=== PATIENT | male | born 1960 | race African-American/Black ===

== ENCOUNTER → 2020-09-28 08:17 | Outpatient (CLI) | payer BC ==
--- NOTE | 2020-09-30 11:32 | EC ---
PATIENT:VERA GRANADOS DATE OF SERVICE: 09/28/20 SEX: M MEDICAL RECORD: [id number] DATE OF : 58 [facility] AGE OF PATIENT: 60 ADMISSION DATE: 09/28/20 REFERRING PHYSICIAN: INTERPRETING PHYSICIAN: СВЕТЛАНА JOSE MD ECHOCARDIOGRAM REPORT ECHO CHARGES 4 ECHO COMPLETE Date: 09/28/20 CLINICAL DIAGNOSIS: ANGINA/HEART MURMUR ECHOCARDIOGRAPHIC MEASUREMENTS (adult normal given) AC root (d.<3.7cm) 3.8 cm LV Septum d (<1.2 cm> 1.0 cm Valve Excursion 2.2 cm LV Septum (systole) 1.1 cm Left Atria (s.<4.0cm> 4.5 cm LVPW d(<1.2cm) 1.4 cm RV (d.<2.3cm) 3.9 cm LVPW (sytole) 1.6 cm LV diastole(<5.6CM) 5.8 cm MV E-F(>70mm/sec) cm LV systole 4.0 cm LVOT Diameter 2.1 cm MV exc.(>10mm) 2.4 cm Est.ejection fraction (50-75%) % DOPPLER: LVIT cm/sec A 91.0 cm/sec E 61.0 cm/sec LA cm/sec RVSP 28 mmHg LVOT 90 cm/sec AOP1/2T m/s Asc. Ao 113 cm/sec RVOT 60 cm/sec RA cm/sec PA 91 cm/sec AV Gradient Peak 5.14 mmHg AV Mean 2.24 mmHg AV Area 2.1 cm MV Gradient Peak 5.51 mmHg MV Mean 1.12 mmHg MV Area cm COMMENTS: Reservations Agent: 2 CHECO FERNANDEZ Host And Hostess: 3 Dr. Lopez TAPE# PACS Pericardial Effusion N DATE OF SERVICE: Adequate 2D, color-flow imaging, spectral Doppler, and M-Mode. No LVH. LV internal dimensions are normal. Wall motion is normal. EF is greater than or equal to 55%. Aortic valve is tricuspid. No evidence of stenosis by Doppler interrogation. Left atrium is mildly dilated at 4.5 cm. Mitral valve does show prolapse of the posterior leaflet with only mild MR. Right side is grossly normal. Trace TR. ECHOCARDIOGRAM REPORT [id number] VERA GRANADOS TRANSINT:[id number] Voice Confirmation ID: [id number] DOCUMENT ID: [id number] СВЕТЛАНА JOSE MD at 1132 CC: [id number] DICTATION DATE: 09/29/20 1339 LVN: 09/29/202126 DEP CLI 09/28/20 [place] [id number] [place] [id number]
== END | disposition home or self-care (01) ==
LOC: D.HCCARDIO 08:17 → D.HCCECHO 09:00
PROVIDERS: ATTEND Internal Medicine Cardiovascular Disease
DX: I20.9 Angina pectoris, unspecified (principal)

== ENCOUNTER 2020-10-14 07:14 | Day surgery (SDC) | payer BC ==
[~2020-10-14] VITALS: Ht 172.7 cm; Wt 112.4 kg
--- NOTE | ~2020-10-14 | OP ---
PATIENT NAME: VERA GRANADOS MEDICAL RECORD: [id number] :58 LOCATION:D.CAT ADMISSION DATE: SURGEON: СВЕТЛАНА JOSE MD DATE OF OPERATION: 10/14/2020 PROCEDURE: Left heart catheterization, selective coronary angiography, right radial approach. CATHETERS: Radial sheath, [place] catheter. The procedure was well tolerated. The patient was returned to the south. Sheath removed. TR band was placed. FINDINGS: Left ventriculography in 30-degree GRIFFITH view, normal wall motion and normal systolic function. CORONARY ANATOMY: LEFT MAIN: Left main is free of disease. LAD: Free of disease as is the diagonal system. CIRCUMFLEX: Free of disease as is the marginal system. RIGHT CORONARY ARTERY: Dominant right artery, gives rise to PDA, free of disease. IMPRESSION: Normal left ventricular systolic function. Normal coronary anatomy. TRANSINT:[id number] Voice Confirmation ID: [id number] DOCUMENT ID: [id number] СВЕТЛАНА JOSE MD CC: [id number] DICTATION DATE: 10/14/20 1056 CHIEF PROJECTIONIST: 10/14/20 1442 [facility] 10/14/20 [facility] [address] [place] [address]
--- NOTE | ~2020-10-14 | HEMODYNAMI ---
PATIENT:VERA GRANADOS MEDICAL RECORD: [id number] : 58 LOCATION:[facility] ADMISSION DATE: 10/14/20 Generatedon:110:51 Patient name: VERA GRANADOS Patient #: [id number] SSN: DO B: 1960 Date of study: 10/14/2020 Page: Of Hemodynamic Procedure Report Patient Data Patient Demographics Procedure consent was obtained First Name: VERA Gender: Male Last Name: DARWIN : 1960 Patient #: [id number] Age: 60 year(s) Race: Black Additional ID: [id number] Contact details Address: [address] State: [place] City: [place] Zip code: [address] Past Medical History Allergies: No known allergies Admission Admission Data Admission Date: 10/14/2020 Admission Time: 7:14 Lab Results Lab Result Date: 10/14/2020 Lab Result Time: 0:00 Biochemistry Name Units Result Min Max BUN mg/dl 19 --(----)*- 7 18 Creatinine mg/dl 1.2 --(---*)-- 0.6 1.3 eGFR ml/min 64.56815 *-(----)-- 90 120 NONAFRICAN CBC Name Units Result Min Max Hematocrit % 40.7 -*(----)-- 42 54 Hemoglobin g/dl 13.5 --(*---)-- 13.5 17.5 Procedure Procedure Types Cath Procedure Diagnostic Procedure C [facility] w/Coronaries Sedation Charges Moderate Sedation 10-24 minutes Procedure Description Procedure Date Procedure Date: 10/14/2020 Procedure Start Time: 10:33 Procedure End Time: 10:49 Procedure Staff Name Function Bentley Ricardo MD Performing Physician Senia Neal RT Monitor Maria Eugenia Hernandez RT Scrub Sergio Bruce RN Nurse Procedure Data Cath Procedure Fluoroscopy Diagnostic fluoroscopy Total fluoroscopy Time: 4.5 time: 4.5 min min Diagnostic fluoroscopy Total fluoroscopy dose: 838 dose: 838 mGy mGy Contrast Material Contrast Material Type Amount (ml) Isovue 300 53 Entry Location Entry Primary Successful Side Size Upsize Upsize Entry Closure Hassan ccessful Closure Location (Fr) 1 (Fr) 2 (Fr) Remarks Device Remarks Radial Right 6 Fr Mechanical artery Short Compression Estimated blood loss: 5 ml Diagnostic catheters Device Type Used For End Catheter Placement DIAGNOSTIC [place] 110cm 5 Procedure Fr catheter ([id number]) DIAGNOSTIC JL 3.5 5Fr Procedure catheter ([id number]) DIAGNOSTIC AR1 MOD 5Fr Procedure catheter ([id number]) Procedure Complications No complications Procedure Medications Medication Administration Route Dosage 0.9% NaCl I.V. 100 ml/hr Oxygen etCO2 Nasal cannula 2 l/min Heparin Flush Bag added to field 2 bags (1000units/500ml NS) Lidocaine 2% added to field 20 Radial Cocktail added to field 1 syringe (Verapamil 2mg/Nitro 400mcg/Heparin 1500units) Benadryl I.V. 50 mg Versed I.V. 2 mg Fentanyl I.V. 100 mcg Radial Cocktail I.A. 1 syringe (Verapamil 2mg/Nitro 400mcg/Heparin 1500units) Versed I.V. 1 mg Versed I.V. 1 mg Hemodynamics Rest HGB: 13.5 (g/dl) Heart Rate: 59 (bpm) Pressure Samples Time Site Value (mmHg) Purpose Heart Use Rate(bpm) 10:37 LV 116/25,9 Snapshot 93 10:38 LV 95/10,9 Snapshot 103 10:38 LV 120/13,10 Snapshot 104 10:38 AO 138/81(107) Pullback 67 10:38 LV 121/-1,62 Pullback 67 Gradients Valve Time Site 1 Site 2 Mean SEP/DFP Peak To Heart Use (mmHg) (sec/min) Peak Rate (mmHg) (bpm) Aortic 10:38 LV AO 0 67 121/-1,62 138/81(107) Calculations Valve P-P Mean Valve Index Valve Source Name Gradient Area Flow (cm2) Aortic 0 0 Snapshots Pre Cath Intra NCS Post Cath Vital Signs Time Heart Resp SPO2 etCO2 NIBP (mmHg) Rhythm Pain Sedation Rate (ipm) (%) (mmHg) Status Level (bpm) 10:18:04 65 14 100 36.9 143/87(126) NSR 0 (11) 10(A) , No pain 10:22:16 70 16 100 29.3 145/92(123) NSR 0 (11) 10(A) , No pain 10:26:32 61 19 100 34.6 140/85(112) NSR 0 (11) 10(A) , No pain 10:30:46 59 16 100 35.3 139/83(101) NSR 0 (11) 10(A) , No pain 10:35:00 55 19 96 33.8 118/83(100) NSR 0 (11) 10(A) , No pain 10:39:08 60 19 98 37.6 129/76(103) NSR 0 (11) 10(A) , No pain 10:43:19 61 10 97 39.1 138/82(106) NSR 0 (11) 10(A) , No pain 10:48:10 65 22 97 40.6 124/81(98) NSR 0 (11) 10(A) , No pain Medications Time Medication Route Dose Verified Delivered Reason Notes Effectiveness by by 10:18:35 0.9% NaCl I.V. 100 Sergio Sergio Per ml/hr Janis Bruce physician RN RN 10:18:43 Oxygen etCO2 2 l/min Sergio Sergio for low 02 Nasal Lorigan Lorigan sats cannula RN RN 10:18:53 Heparin Flush added 2 bags Sergio Sergio used for Bag to Lorveronica Bruce procedure (1000units/500ml field RN RN NS) 10:19:03 Lidocaine 2% added 20ml Sergio Sergio for local to vial Lorigan Malaigan anesthetic field RN RN 10:19:13 Radial Cocktail added 1 Sergio Sergio used for (Verapamil to syringe Lorigan Lorigan procedure 2mg/Nitro field RN RN 400mcg/Heparin 1500units) 10:19:35 Benadryl I.V. 50 mg Sergio Sergio Per Janis Bruce physician RN RN 10:33:27 Versed I.V. 2 mg Sergio Sergio for sedation Janis Bruce RN RN 10:33:35 Fentanyl I.V. 100 mcg Sergio Sergio for sedation Janis Bruce RN RN 10:36:33 Radial Cocktail I.A. 1 Sergio Bentley for (Verapamil syringe Lorigan Haleigh vasodilation 2mg/Nitro RN 400mcg/Heparin 1500units) 10:36:41 Versed I.V. 1 mg Sergio Sergio for sedation Janis Bruce RN RN 10:41:14 Versed I.V. 1 mg Sergio Sergio for sedation Janis Bruce RN chicken buyer Log Time Note 9:57:37 Informed consent obtained and on chart 9:57:57 Procedure Status Elective Heart Cath (OP). 9:57:58 Time tracking: Regular hours (M-F 7:00 - 5:00) 9:58:01 Plan of Care:Hemodynamics will remain stable., Cardiac rhythm will remain stable., Comfort level will be maintained., Respiratory function will remain adequate., Patient/ family verbilizes understanding of procedure., Procedure tolerated without complication., Recovers from procedure without complications.. 9:58:02 Sergio Bruce RN sent for patient. Start room use. 9:58:11 H&P Date Dictated: 09/21/2020 Within 30 days and on chart., H&P Addendum completed by physician on day of procedure. (MUST COMPLETE FOR ALL OUTPATIENTS). 10:04:00 Patient allergic to No known allergies 10:07:49 Lab Result : BUN 19 mg/dl 10:07:49 Lab Result : Creatinine 1.2 mg/dl 10:07:49 Lab Result : eGFR NONAFRICAN 64.98843 ml/min 10:07:49 Lab Result : Hemoglobin 13.5 g/dl 10:07:49 Lab Result : Hematocrit 40.7 % 10:08:01 Patient received from Pre/Post Procedure Room to CCL 2 Alert and oriented. Tansferred to table in Supine position. 10:08:03 Warm blankets applied, and krystyna hugger turned on for patient comfort. 10:08:03 Correct patient and procedure confirmed by team. 10:08:03 ECG and BP/O2 sat monitors applied to patient. 10:16:58 Vital chart was started 10:17:02 Baseline sample Acquired. 10:17:13 Baseline sample Acquired. 10:17:16 Full Disclosure recording started 10:17:17 Pre-procedure instructions explained to patient. 10:17:17 Pre-op teaching completed and patient verbalized understanding. 10:17:18 Family in patients room. 10:17:20 Patient NPO since Midnight. 10:17:21 Is the patient allergic to Iodine/contrast media? No. 10:17:24 Is patient on blood thinner?No 10:17:25 Patient diabetic? No. 10:17:28 Previous problem with sedation/anesthesia? No ? 10:17:29 Snore? Yes 10:17:29 Sleep apnea? Yes 10:17:30 Deviated septum? No 10:17:31 Opens mouth fully? Yes 10:17:33 Airway obstruction? No ? 10:17:34 Sticks out tongue? Yes 10:17:36 Dentures? No ? 10:17:40 Pre procedure: right dorsailis pedis pulse 1+ Palpable, but thready & weak; easily obliterated 10:17:42 Modified Jareth's test Ulnar < 7 seconds 10:17:44 Patient pain scale 0/10 ?. 10:17:48 IV patent on arrival in left antecubital with 0.9% NaCl at O. 10:17:50 Lab results completed and on chart. 10:17:53 Right Radial & Right Groin area was prepped with chlora-prep and draped in sterile fashion 10:17:54 Alarms reviewed by R. N. 10:17:54 Sharps counted by scrub and verified by R.N. 10:17:54 Sharps counted by scrub and verified by R.N. 10:18:20 Use device set Radial Dx or PCI 10:18:21 ACIST Syringe (18439) opened to sterile field. 10:18:22 Bag Decanter (2002S) opened to sterile field. 10:18:22 ACIST Hand Control (16088) opened to sterile field. 10:18:23 ACIST Manifold (97040) opened to sterile field. 10:18:23 Tegaderm 4 x 4 (1626W) opened to sterile field. 10:18:24 MBrace Wrist Support (068087064) opened to sterile field. 10:18:25 Medline Cath Pack ([id number]) opened to sterile field. 10:18:26 EMERALD Guide Wire (165-834) opened to sterile field. 10:18:27 SHEATH 6FR RAIN (7096625) opened to sterile field. 10:18:35 0.9% NaCl 100 ml/hr I.V. was administered by Sergio Bruce RN; Per physician; Verbal order read back and verified. 10:18:43 Oxygen 2 l/min etCO2 Nasal cannula was administered by Sergio Bruce RN; for low 02 sats; Verbal order read back and verified. 10:18:53 Heparin Flush Bag (1000units/500ml NS) 2 bags added to field was administered by Sergio Bruce RN; used for procedure; Verbal order read back and verified. 10:19:03 Lidocaine 2% 20ml vial added to field was administered by Sergio Bruce RN; for local anesthetic; Verbal order read back and verified. 10:19:04 Stress Test: yes; abnormal INFERIOR 10:19:13 Radial Cocktail (Verapamil 2mg/Nitro 400mcg/Heparin 1500units) 1 syringe added to field was administered by Sergio Bruce RN; used for procedure; Verbal order read back and verified. 10:19:35 Benadryl 50 mg I.V. was administered by Sergio Bruce RN; Per physician; Verbal order read back and verified. 10:24:17 Zero performed for pressure channel P1 10:32:16 --------ALL STOP TIME OUT------ 10:32:16 Final Timeout: patient, procedure, and site verified with staff and physician. All members of the team are in agreement. 10:32:18 Right Radial & Right Groin site verified by team. 10:32:20 Fire Safety Assessment: A--An alcohol-based skin anteseptic being used preoperatively., C--Open oxygen or nitrous oxide is being used., D--An ESU, laser, or fiber-optic light is being used. 10:32:25 Physical assessment completed. ASA score P 2 - A patient with mild systemic disease as per Bentley Ricardo MD. 10:32:28 2) 60-89 Mildly reduced kidney function, and other findings (as for stage 1) point to kidney disease. 10:32:32 Maximum allowable contrast dose (3.7 X eGFR X 0.75)219 ml. 10:32:35 Sedation plan: IV Moderate Sedation Medication:Versed, Fentanyl 10:33:27 Versed 2 mg I.V. was administered by Sergio Bruce RN; for sedation; Verbal order read back and verified. 10:33:31 Procedure started. 10:33:35 Fentanyl 100 mcg I.V. was administered by Sergio Bruce RN; for sedation; Verbal order read back and verified. 10:33:48 Local anesthetic to right radial artery with Lidocaine 2% by Bentley Ricardo MD.INITIAL ACCESS ONLY 10:36:01 A 6 Fr Short sheath was inserted into the Right Radial artery 10:36:09 A DIAGNOSTIC [place] 110cm 5 Fr catheter ([id number]) was advanced over the wire and used for Procedure. 10:36:33 Radial Cocktail (Verapamil 2mg/Nitro 400mcg/Heparin 1500units) 1 syringe I.A. was administered by Bentley Ricardo MD; for vasodilation; Verbal order read back and verified. 10:36:41 Versed 1 mg I.V. was administered by Sergio Bruce RN; for sedation; Verbal order read back and verified. 10:37:34 LV gram done using GRIFFITH 10:37:36 Injector settings: Ml/sec: 5, Volume: 15, 10:38:05 LV hemodynamics recorded. 10:38:17 EF : 55 % 10:39:54 Catheter exchanged over wire. 10:41:13 A DIAGNOSTIC JL 3.5 5Fr catheter ([id number]) was advanced over the wire and used for Procedure. 10:41:14 Versed 1 mg I.V. was administered by Sergio Bruce RN; for sedation; Verbal order read back and verified. 10:42:34 LCA angiography performed. 10:42:40 Catheter exchanged over wire. 10:43:44 A DIAGNOSTIC AR1 MOD 5Fr catheter ([id number]) was advanced over the wire and used for Procedure. 10:44:42 RCA angiography performed. 10:44:50 Catheter removed. 10:44:52 ACCDominant side:Left 10:45:26 ZEPHYR REGULAR TR BAND (778382) opened to sterile field. 10:45:28 Sheath removed intact; hemostasis achieved with Mechanical Compression to the Right Radial artery. 10:45:33 Procedure ended.(Physican Out) 10:45:44 Contrast amount:Isovue 300 53ml. 10:45:50 Fluoroscopy time 04.50 minutes. 10:45:54 Flurop Dose total: 838 10:45:54 Fluoroscopy dose: 838 mGy 10:46:00 Dose Area Product 46738 mGy/cm. 10:46:01 Sharps counted by scrub and verified by R.N. 10:46:19 Post-procedure physical assessment completed. ASA score P 2 - A patient with mild systemic disease as per Bentley Ricardo MD. 10:46:25 Post procedure rhythm: sinus rhythm 10:46:28 Estimated blood loss: 5 ml 10:46:30 Post procedure instruction explained to patient.Patient verbalizes understanding. 10:46:30 Patient needs reinforcement of post procedure teaching. 10:46:45 Procedure type changed to Cath procedure, Diagnostic procedure, LHC, C w/Coronaries, Sedation Charges, Moderate Sedation 10-24 minutes 10:47:54 Procedure and supply charges have been captured, reviewed, submitted and are correct. 10:47:56 Procedure Complication : No complications 10:48:01 [facility] Findings: mild to moderate CAD (<70%) 10:48:04 Operative report dictated upon procedure completion. 10:48:04 See physician's report for complete and final results. 10:49:09 Vital chart was stopped 10:49:14 Report given to Pre/Post Procedure Room. 10:49:16 Patient transfered to Pre/Post Procedure Room with Bed. 10:49:19 Procedure ended. 10:49:19 Full Disclosure recording stopped 10:49:27 End room use (Document Last) 10:50:28 Procedure ended.(Physican Out) Device Usage Item Name Manufacture Quantity Catalog Hospital Part Current Minima l Lot# / Number Charge Number Stock Stock Serial# Code ACIST Acist 1 20857 855514 011486 684672 20 Syringe Medical (59009) Systems Inc Bag Microtek 1 2001S 212025 27366 877034 5 Decanter Medical Inc. () ACIST Hand Acist 1 18370 178545 128824 663604 5 Control Medical (77185) Systems Inc ACIST Acist 1 73468 683825 043570 049099 5 Manifold Medical (89877) Systems Inc Tegaderm 4 3M 1 1626W 739591 687564 805528 5 x 4 (1626W) MBrace Advanced 1 140-0250-00 198950 58936 836172 5 Wrist Vascular Support Dynamics ([id number]) Medline Medline 1 [id number] 309415 52304 396482 5 Cath Pack ([id number]) EMERALD Cardinal 1 632-430 432279 801273 548828 5 Guide Wire [facility] (984-450) SHEATH 6FR Cardinal 1 4279048 919456 4204606 763277 5 [facility] (6110413) DIAGNOSTIC Terumo 1 40-0885 108257 974231 414087 5 [place] 110cm 5 Fr catheter (012884) DIAGNOSTIC Cardinal 1 [id number] 083475 955433 529487 5 JL 3.5 5Fr Health catheter (120351I) DIAGNOSTIC Cardinal 1 [id number] 344354 154650 884732 15 AR1 MOD 5Fr Health catheter (768253Z) ZEPHYR Cardinal 1 749889 872046 8395120 059156 5 REGULAR TR Health BAND (134184) Signature Audit Esmond Stage Time Signature Unsigned Intra-Procedure 10/14/2020 Senia Neal 10:50:09 AM RT(R) Intra-Procedure 10/14/2020 Sergio 10:50:28 AM Janis RN Intra-Procedure 10/14/2020 Bentley Cordon 10:51:03 AM Roger DAVIS Signatures Performing Physician : Signature : Bentley Ricardo MD Date : Time : Monitor : Senia Neal Signature : RT Date : Time : Nurse : Sergio Bruce Signature : RN Date : Time : [facility] [address] [address]
[2020-10-14 08:59] VITALS: BP 152/105; Ht 172.7 cm; Wt 112.4 kg
[2020-10-14] MEDS ORDERED: MYRBETRIQ50 MG PO ×2 (09:10→09:32)
[2020-10-14] MEDS ORDERED: KLONOPIN1 MG PO (09:10)
[2020-10-14] MEDS ORDERED: TENORMIN25 MG PO (09:10)
[2020-10-14] MEDS ORDERED: BENICAR HCT 401 EAC1 PO (09:11)
[2020-10-14] MEDS ORDERED: VALTREX1000 MG PO (09:11)
[2020-10-14] MEDS ORDERED: EFFEXOR XR150 MG PO (09:13)
[2020-10-14] MEDS ORDERED: NEURONTIN 300300 MG PO (09:32)
[2020-10-14] MEDS ORDERED: NORVASC5 MG PO (09:32)
[2020-10-14] MEDS ORDERED: CRESTOR10 MG PO (09:33)
[2020-10-14 09:36] LABS: ANION GAP 12.8 mmol/L (8-16); CALCIUM 9.1 mg/dL (8.5-10.1); CARBON DIOXIDE 27.2 mmol/L (21.0-32.0); CHOL - HDL RATIO 4.9 ratio (2.3-4.9); CREATININE - SERUM 1.2 mg/dL (0.6-1.3); LDL-HDL RATIO 3.3 ratio (1.5-3.5)
[2020-10-14] MEDS ORDERED: TRAZODONE HCL100 MG PO (09:36)
[2020-10-14] MEDS ORDERED: testosterone BC (09:36)
[2020-10-14 09:43] LABS: BASOPHILS 1.6 % (0-2); EOSINOPHILS 8.6 % (0-7); HEMATOCRIT 40.7 % (42.0-54.0); HEMOGLOBIN 13.5 g/dL (13.5-17.5); IMMATURE GRANULOCYTES 0.3 % (0-5); LYMPHOCYTE ABS# 1.43 10x3/uL (1.32-3.57); LYMPHOCYTES 37.4 % (15-50); MCH 28.8 pg (26.0-34.0); MCHC 33.2 g/dL (31.0-37.0); MCV 86.8 fL (80.0-100.0); MEAN PLATELET VOLUME 11.4 fL (7.4-10.4); MONOCYTES 11.8 % (2-11); NEUTROPHIL ABS# 1.54 10x3/uL (1.78-5.38); NEUTROPHILS 40.3 % (40-80); PLATELET COUNT 202 10x3/uL (130-400); RBC 4.69 10x6/uL (4.20-6.10); RDW 14.5 % (11.5-14.5); WBC 3.8 10x3/uL (4.8-10.8)
--- NOTE | 2020-10-14 11:00 | NUR ---
ARRIVES TO ROOM 6 VIA STRETCHER FROM ANALYSIS LEAD S/P HEART ANALYSIS LEAD. SEE BOATHOUSE KEEPER. PLACED ON MONITORS ALARMS ON. IV INFUSING PER ORDERS, PLAN OF CARE GIVEN , PT AWARE OF RECOVERY TIME, DR JOSE AT BEDSIDE TO VISIT WITH SPOUSE AND REVIEW FINDINGS, PT DENIES PAIN OR NEEDS AT THIS TIME. CALL LIGHT WITHIN REACH
--- NOTE | 2020-10-14 11:15 | NUR ---
RESTING QUIETLY AROUSES EASILY TO VERBAL, DENIES PAIN OR NEEDS, DENIES BATHROOM NEEDS, VSS, CM SHOWS SB, RIGHT WRIST WITH ZBAND IN PLACE NO OOZING OR BLEEDING , RADIAL AND BRACHIAL PULSE PALPABLE, CAP REFILL WNL , MOVES ALL DIGITS, SPOUSE AT BEDSIDE. CALL LIGHT WITHIN REACH
--- NOTE | 2020-10-14 11:30 | NUR ---
EYES CLOSED AROUSES EASILY, VSS, SB, RIGHT WRIST WITH ZBAND IN PLACE C/D/I, NO OOZING OR BLEEDING NOTED, BRACHIAL AND RADIAL PULSE PALPLABLE, CAP REFILL WNL , MOVES ALL DIGITS, DENIES PAIN OR NEEDS, IV INFUSING PER ORDERS, CALL LIGHT WITHIN REACH, PO FLUIDS OFFERED PT DECLINED
--- NOTE | 2020-10-14 11:45 | NUR ---
RIGHT WRIST WITH ZBAND IN PLACE, 2CC AIR RELEASED FROM BAND, NO OOZING OR BLEEDING, BRACHIAL AND RADIAL PULSE PALPABLE, CAP REFILL WNL, MOVES ALL DIGITS, DENIES PAIN OR NEEDS, CALL LIGHT WITHIN REACH
--- NOTE | 2020-10-14 12:15 | NUR ---
RESTING QUIETLY, VSS, SB, RIGHT WRIST WITH ZBAND IN PLACE, 4CC AIR RELEASED TOTAL OUT 6CC, NO OOZING OR BLEEDING NOTED, PT VOIDS 300 CC CLEAR YELLOW URINE IN URINAL, PT DENIES PAIN OR NEEDS AT PRESENT.
--- NOTE | 2020-10-14 12:45 | NUR ---
RESTING QUIETLY DENIES PAIN OR NEEDS, RIGHT WRIST STABLE NO OOZING OR BLEEDING NOTED, RADIAL PULSE PALPABLE, CAP REFILL WNL, MOVES ALL DIGITS, IV INFUSING PER ORDERS, DISCHARGE TEACHING STARTED, CALL LIGHT WITHIN REACH
--- NOTE | 2020-10-14 12:50 | NUR ---
ALL AIR RELEASED FROM ZBAND WITH NO BLEEDING OR OOZING NOTED TO RIGHT WRIST, RADIAL PULSE PALPABLE , CAP REFILL WNL, MOVES ALL DIGITS, 22G IV REMOVED FROM LEFT HAND CATHETER INTACT DRESSING APPLIED, DISCHARGE TEACHING COMPLETED PT AND SPOUSE VERBALZIED UNDERSTANDING. PT UP TO DRESS AND AMBULATES TO BATHROOM TO VOID WITHOUT DIFFICULTY. PT DENIES PAIN OR NEEDS
--- NOTE | 2020-10-14 13:00 | NUR ---
PT DISCHARGED PER ORDERS, PT HAS NO QUESTIONS OR CONCERNS AT THIS TIME, PT TAKEN TO FAMILY VEHICLE VIA WHEELCHAIR.
== END 2020-10-14 13:00 | disposition home or self-care (01) ==
LOC: D.CATH 07:14
PROVIDERS: ATTEND Internal Medicine Interventional Cardiology
DX: I20.9 Angina pectoris, unspecified (principal); R94.30 Abnormal result of cardiovascular function study, unspecified; I10 Essential (primary) hypertension; E78.5 Hyperlipidemia, unspecified; R01.1 Cardiac murmur, unspecified